=== PATIENT | male | born 1990 | race Two or more races ===

== ENCOUNTER 2021-06-01 14:43 | Outpatient (REF) | payer SELFPAY ==
[2021-06-01 15:38] LABS: Binax Internal Control QC Valid; Binax Lot number: 9864; Binax Now Covid-19 Ag Negative (Negative)
== END 2021-06-01 14:44 | disposition home or self-care (01) ==
LOC: HO.LAB 14:43
PROVIDERS: Visit Provider Internal Medicine
DX: Z20.822 Contact with and (suspected) exposure to COVID-19 (principal)
CPT/HCPCS: C9803